=== PATIENT | male | born 1975 | race African-American/Black ===

== ENCOUNTER 2019-11-26 08:57 | Day surgery (SDC) | payer OTHER ==
[~2019-11-26] VITALS: Ht 195.6 cm; Wt 117.5 kg
[~2019-11-26 08:57] MED LIST: AMOX500C PO; AMPICILLIN SOD/SULBACTAM SOD 3 GM in D5W MINI-BAG PLUS 100 ML IV ONE; IBUP80TA PO; dexameTHASONE 4 MG/ML 1ML VIAL (J1100) IV ONE
[2019-11-26] MEDS ORDERED: LIDOCAINE 2% W/ EPINEPHRINE 1.7 ML DENTAL INJ As Ordered ONE (09:27)
[2019-11-26] MEDS ORDERED: fentaNYL 250 MCG/5 ML INJECTION (J3010) As Ordered ONE (10:12)
[2019-11-26] MEDS ORDERED: propofoL 200 MG/20 ML VIAL As Ordered ONE (10:12)
[2019-11-26] MEDS ORDERED: SUGAMMADEX SODIUM 500 MG/5 ML VIAL (BRIDION) As Ordered ONE (10:12)
[2019-11-26] MEDS ORDERED: LIDOCAINE 2% INJ 100 MG/5 ML SDV (FOR ANES.) As Ordered ONE (10:12)
[2019-11-26] MEDS ORDERED: ROCURONIUM BROMIDE 50 MG/5 ML VIAL As Ordered ONE (10:12)
[2019-11-26] MEDS ORDERED: dexameTHASONE 4 MG/ML 1ML VIAL (J1100) As Ordered ONE (10:12)
[2019-11-26] MEDS ORDERED: MIDAZOLAM INJ 2 MG/2 ML VIAL (J2250) As Ordered ONE (10:12)
[2019-11-26] MEDS ORDERED: ONDANSETRON 4MG/2ML VIAL (J2405) As Ordered ONE (10:12)
[2019-11-26] MEDS ORDERED: ACETAMINOPHEN 1000MG 100ML IV BTL (OFIRMEV) (J0131 PER 10MG) As Ordered ONE (10:13)
[2019-11-26] MEDS ORDERED: PHENYLephrine HCL 500 MCG/5 ML (100MCG/ML) SYRINGE (J2370) As Ordered ONE (10:48)
[2019-11-26] MEDS ORDERED: LIDOCAINE 5% OINT 30 GM As Ordered ONE (11:14)
[2019-11-26] MEDS ORDERED: HYDROMORPHONE HCL 0.5 MG/ 0.5 ML SYRINGE (J1170 PER 1) IV PRN (11:30)
[2019-11-26] MEDS ORDERED: LR 1,000 ML IV SCH (11:30)
[2019-11-26] MEDS ORDERED: oxyCODONE 5MG TAB PO PRN (11:30)
[2019-11-26] MEDS ORDERED: fentaNYL 100 MCG/2 ML INJECTION (J3010) IV PRN (11:30)
[2019-11-26] MEDS ORDERED: ONDANSETRON 4MG/2ML VIAL (J2405) IV PRN (11:30)
[2019-11-26 11:49] VITALS: BP 127/74
--- NOTE | 2019-11-27 12:52 | RO ---
DATE OF PROCEDURE: 11/26/2019 PREOPERATIVE DIAGNOSES: 1. Severe dental anxiety and obesity. 2. Grossly decayed teeth number 1,16,18,19 and 31. POSTOPERATIVE DIAGNOSES. Status post the above. PROCEDURE PERFORMED: Surgical extraction of teeth number 1,16, 18, 19, 31 SURGEON: Dr. Stephen Solorio ANESTHESIA: General endotracheal anesthesia via nasal right angle endotracheal tubes (GRETEL). SPECIMEN: Teeth for gross only. INDICATIONS FOR SURGERY: Mr. Ryan is a pleasant 43-year-old male who was referred to my office by his general dentist for extraction of the aforementioned five teeth. He does report to have a very severe dental anxiety and reports to me that he would like to be unconscious for the procedure. His past medical history is a healthy ASA 1 patient. No medications. No allergies. 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 Discussion with the patient was made regarding , we can do a light sedation in the office versus general anesthesia in an operating room setting. He elects to have the latter performed. Complete history and physical was performed an informed consent was gone over with the patient signed. DESCRIPTION OF PROCEDURE: Any last minute questions were addressed. History and physical and consent were updated. At that point, the patient was taken back to the operating room, was laid supine on the operating room table. Ulnar nerve protectors were placed. Noninvasive cardiac monitors were applied. At that point the patient underwent general anesthesia, was intubated with a nasal GRETEL, which was secured to the patient's forehead. He was prepped and draped in usual sterile fashion. A time-out procedure was performed to identify, the patient, the procedure and any other precautions. Preoperative antibiotics and steroids were administered in the IV. A moist throat pack was inserted in the patient's oropharynx followed by the administration of six carpules of 2% lidocaine with 1:100,000 epinephrine as local infiltrations and blocks. At this point a full-thickness flap was released in sites numbers 1,16,18,19, and 31. Flaps were subperiosteally dissected a small distal releases were made. Small buccal trough was made in sites numbers 1,16,18,19, and 31. Teeth were then luxated and delivered without any issues. All the sockets were curetted and irrigated remove. . Lingual cortices were intact. Inferior alveolar nerve was not noted. Small alveoloplasty localized. Alveoloplasty was performed to remove any sharp bony edges and flaps were then closed with #3-0 chromic sutures. Hemostasis was easily achieved. The oral cavity was irrigated and suctioned, the throat pack was removed. The patient was then awakened from general anesthesia and taken back to the postanesthesia care unit (PACU). COMPLICATIONS: None to mention at time of surgery. ESTIMATED BLOOD LOSS: 10 mL. DRAINS: There were no drains placed.
== END 2019-11-26 12:30 | disposition home or self-care (01) ==
LOC: M SDC 08:57
PROVIDERS: ATTEND Dentist
DX: K02.9 Dental caries, unspecified (principal); E66.9 Obesity, unspecified
CPT/HCPCS: 88300; D7210; D9223; J0131; J1100; J2250; J2370; J2405; J3010